=== PATIENT | male | born 2000 | race Two or more races ===

== ENCOUNTER 2025-02-21 03:01 | Emergency (ER) | payer MEDICAID, OTHER ==
[~2025-02-21] VITALS: Ht 167.6 cm; Wt 104.0 kg
--- NOTE | 2025-02-21 03:37 | DVH ---
CLINICAL INDICATION: S/P TWISTING INJURY TECHNIQUE: 4 views XY R KNEE 3V XRAY Comparison: None FINDINGS: Acute fracture, joint malalignment or evident effusion. No significant degenerative change. Unremark able soft tissues. IMPRESSION: 1. No acute osseous finding of the right knee.
[2025-02-21] MEDS: KETOROLAC TROMETH 60MG/2ML VIAL IM ONE (03:40)
[2025-02-21] MEDS: HYDROcodone-ACET 10/325MG TAB PO ONE (03:40)
--- NOTE | 2025-02-21 03:46 | ED.PDOC ---
Back pain HPI HPI Comments PT CAME TO THE ER WITH CC OF RIGHT KNEE PAIN. [place] AND STEPPED [place] A HOLE AND HIS RIGHT LEG WENT SIDEWAYS. PT IS A&OX4 RR EVEN AND REGULAR NO DISTRESS NOTED AT THIS TIME. PT DENIES N/V/D CP SOB Chief Complaint: Lower Extremity Time Seen by MD: 03:03 Reviewed Notes: Nurses Notes, Medications, Allergies Home Meds Active Scripts Indomethacin (Indomethacin) 50 Mg Cap, 1 CAP PO TID PRN for 5 Days, #30 CAP Prov:SERA FERREIRA [employer] 02/21/25 Information Source: Patient Mode of Arrival: Ambulatory Past Medical History PAST MEDICAL HISTORY: Denies Surgical History: Denies all surgeries Family History Family History: Unknown Social History Smoker: Non-Smoker Alcohol: Denies ETOH Use Drugs: Denies Drug Use All Other Systems: Reviewed and Negative (see hpi) Physical Exam General Appearance: No Apparent Distress, Normal HEENT: Pharynx Normal Neck: Full Range of Motion, Non-Tender Respiratory: Lungs Clear, No Respiratory Distress, Normal Breath Sounds Cardiovascular: No Edema, No Murmur, Normal Peripheral Pulses, Regular Rate/Rhythm Breast Exam: Deferred Gastrointestinal: Non Tender, Soft Genitalia: Deferred Pelvic: Deferred Rectal: Deferred Extremities: No calf tenderness, Normal capillary refill, Normal range of motion, Non-tender, No pedal edema Musculoskeletal : Location: Right Extremity Location: Knee (moderate pain w/extension. neg draw exam no instabilty noted. +CSM trace edema inferior patella negative Josiah negative ballottement) Apperance: Normal Neurologic: Alert, No Motor Deficits, Normal Affect, Normal Mood, No Sensory Deficits Cerebellar Function: Normal Reflexes: R Knee (wnl), R Ankle (wnl) Skin: Dry, Normal Color, Warm Lymphatic: No Adenopathy Was a procedure done? Was a procedure done?: No Back Pain Differential Dx Differential Diagnosis: Fracture, Musculoskeletal Pain X-Ray, Labs, Meds, VS Vital Signs Date Time Temp Pulse Resp B/P (MAP) Pulse Ox O2 Delivery O2 Flow Rate FiO2 02/21/25 04:10 99.0 77 20 112/52 (72) 99 99.0 02/21/25 04:10 77 20 99 Room Air 02/21/25 03:03 98.3 96 18 137/91 97 98.3 Current Medications Medications (Trade) Dose Ordered Sig/Tanvi Route Start Time Stop Time Status Last Admin Acetaminophen/ Hydrocodone Bitart (Odon 10/325MG Tab) 1 tab ONCE ONCE PO 02/21/25 03:15 02/21/25 03:16 DC 02/21/25 03:40 Ketorolac Tromethamine (Toradol Injection) 60 mg ONCE ONCE IM 02/21/25 03:15 02/21/25 03:16 DC 02/21/25 03:40 X-Ray, Labs, Meds, VS Comment TECHNIQUE: 4 views XY R KNEE 3V XRAY Comparison: None FINDINGS: Acute fracture, joint malalignment or evident effusion. No significant degenerative change. Unremarkable soft tissues. IMPRESSION: 1. No acute osseous finding of the right knee Patient given Toradol 60 mg IM and Odon 10 mg p.o.. Notes some improvement able to stretch out and extend leg. Imaging reviewed noted findings above patient placed in knee immobilizer with some difficulty moderate pain during knee extension. Patient provided crutches. Script trial of anti-inflammatory advised to take medication as prescribed side effects discussed. Advised on rice. Advised to follow up with his PCP in 2-3 days if no improvement consider outpatient MRI if symptoms persist. ER return precautions given patient indicates understanding and agrees with discharge plan of care. Time of 1ST Reevaluation: 03:03 Reevaluation 1ST: Unchanged Time of 2ND Reevaluation: 03:55 Reevaluation 2ND: Improved Patient Education/Counseling: Diagnosis, Treatment, Prognosis, Need For Follow Up Family Education/Counseling: Diagnosis, Treatment, Need For Follow Up SEPSIS Sepsis Screen Date sepsis recognized/suspect: Feb 21, 2025 Time Sepsis recognized/suspect: 305 Recent Procedure: No On Antibiotic Therapy: No Respiratory Rate >20: No Heart Rate >90: Yes Temp<36 C (96.8 F) or >38.3 C: No SBP <90 or MAP <65 mmHG: No New Acute Mental Status Change: No Is the patient on CPAP, BIPAP,: No Physician Orders R Knee 3v Xray (02/21/25 03:04) Splints (02/21/25 ) Dme: Crutches (02/21/25 03:39) Vital Signs Date Time Temp Pulse Resp B/P (MAP) Pulse Ox O2 Delivery O2 Flow Rate FiO2 02/21/25 04:10 99.0 77 20 112/52 (72) 99 99.0 02/21/25 04:10 77 20 99 Room Air 02/21/25 03:03 98.3 96 18 137/91 97 98.3 Medications Medications Dose Ordered Sig/Tanvi Route Start Time Stop Time Status Last Admin Dose Admin Acetaminophen/ Hydrocodone Bitart 1 tab ONCE ONCE PO 02/21/25 03:15 02/21/25 03:16 DC 02/21/25 03:40 Ketorolac Tromethamine 60 mg ONCE ONCE IM 02/21/25 03:15 02/21/25 03:16 DC 02/21/25 03:40 Departure 1 Departure Time of Disposition: 03:55 Impression: Primary Impression: Sprain of right knee Qualified Codes: S83.91XA - Sprain of unspecified site of right knee, initial encounter Disposition: HOME / SELF CARE / HOMELESS Condition: Stable e-Prescriptions Indomethacin (Indomethacin) 50 Mg Cap 1 CAP PO TID PRN for 5 Days, #30 CAP Prov: SERA FERREIRA 02/21/25 Discharged With: Friend Critical Care Note Critical Care Time?: No Stability Stability form required: SERA Farnsworth Feb 21, 2025 03:46
[2025-02-21] MEDS ORDERED: INDO50CA82 PO (03:56)
[2025-02-21 04:10] VITALS: BP 112/52; PULSE 77; RESP 20; TEMP 99; O2SAT 99
== END 2025-02-21 04:11 | disposition home or self-care (01) ==
LOC: ER 03:01
DX: S83.91XA Sprain of unspecified site of right knee, initial encounter (principal); Z79.899 Other long term (current) drug therapy; X58.XXXA Exposure to other specified factors, initial encounter; Y93.89 Activity, other specified; Y92.830 Public park as the place of occurrence of the external cause; Y99.8 Other external cause status
CPT/HCPCS: 29505; 73562; 96372; 99283; J1885

== ENCOUNTER 2025-03-30 10:01 | Outpatient (CLI) | payer BC, MEDICAID ==
[2025-03-30 10:38] LABS: Hematocrit 45.7 % (41.0-53.0); Hemoglobin 15.8 g/dL (13.5-17.5); Mean Corpuscular Hemoglobin 27.5 pg (28.0-32.0); Mean Corpuscular Volume 79.7 fL (80.0-100.0); Nucleated Red Blood Cells % 0.1 %
[2025-03-30 10:44] LABS: Urine Protein, UAD Negative (Negative)
[2025-03-30 10:52] LABS: INR 1.04 (0.9-1.15); Partial Thromboplastin Time 29.9 SEC (24.5-34.5); Prothrombin Time 11.0 sec (9.3-11.8)
[2025-03-30 11:07] LABS: Alkaline Phosphatase 85 U/L (46-116); BUN/Creatinine Ratio 11.1 (10.0-20.0); Bilirubin, Total 0.7 mg/dL (0.2-1.0); Blood Urea Nitrogen 11 mg/dL (9-23); Calcium 10.0 mg/dL (8.7-10.4); Carbon Dioxide 29 mmol/L (20-31); Glucose 86 mg/dL (74-106); Potassium 4.3 mmol/L (3.5-5.1); Sodium 141 mmol/L (136-145)
[2025-03-30 11:10] LABS: Alanine Aminotransferase 78 U/L (7-40); Albumin 5.1 g/dL (3.2-4.8); Total Protein 8.5 g/dL (5.7-8.2)
[2025-03-30 11:17] LABS: Anion Gap 9 (5-15); Chloride 103 mmol/L (98-107)
== END 2025-03-30 17:00 | disposition home or self-care (01) ==
LOC: LAB 10:01
PROVIDERS: ATTEND Orthopaedic Surgery Sports Medicine
DX: Z01.812 Encounter for preprocedural laboratory examination (principal)
CPT/HCPCS: 36415; 80053; 81001; 85025; 85610; 85730